=== PATIENT | female | born 1990 | race African-American/Black ===

== ENCOUNTER 2018-03-26 22:40 | Emergency (ER) | payer OTHER, MEDICAID, SELFPAY ==
[2018-03-26 22:48] VITALS: BP 109/82; PULSE 82; RESP 18; TEMP 37; O2SAT 99; BMI 19.5
[2018-03-26] MEDS: CYCLOBENZAPRINE 10 MG PREPACK 1 BOTTLE MISC (23:17)
--- NOTE | 2018-03-26 23:21 | PC.NURSE ---
pt reports stumbled on stairs, caught herself with railing before falling, still having rt side neck pain 1 week later, denies LOC/nausea/vomiting/numbness/tingling, no midline tenderness
--- NOTE | 2018-03-27 05:44 | ED.NECK ---
HPI - Neck Pain/Injury General Chief Complaint: Neck Pain/Injury Stated Complaint: NECK PAIN Time Seen by Provider: 03/26/18 22:46 Source: patient and family Mode of arrival: ambulatory Limitations: no limitations History of Present Illness HPI Narrative: Patient presents to the emergency department with in the chief complaint of right-sided neck pain for the past week. One week ago she was walking down some stairs and slipped and reached out and grabbed the railing and felt immediate kink in her nap from what sounds like a whiplash injury. She denies any direct trauma to her neck and did not fall. She denies numbness, weakness or tingling. She has pain in the right side of her neck particularly with motion. It feels better to remain still. She denies fever chills or headache. MD complaint: neck pain and neck injury Onset (ago): week(s) Place: home Radiation: right lateral Severity: moderate Quality: burning and sharp Duration: constant Relieving factors: remaining still Exacerbating factors: movement of neck Context: near fall Associated symptoms: none Treatments prior to arrival: ibuprofen Related Data Previous Rx's Medication Instructions Recorded medroxyprogesterone 10 mg PO QDAY #14 tab 11/21/16 cyclobenzaprine 10 mg PO TID PRN #14 tab 03/26/18 Allergies Allergy/AdvReac Type Severity Reaction Status Date / Time No Known Allergies Allergy Uncoded 12/27/17 12:41 Review of Systems Review of Systems All systems reviewed & are unremarkable except as noted in HPI and below Constitutional Denies chills, Denies fever(s), Denies lethargy and Denies weakness Eyes Denies change in vision, Denies eye discharge, Denies irritation and Denies loss of vision ENT Ears, Nose, Mouth, and Throat: Denies change in voice, Reports neck pain and Denies sore throat Cardiovascular Denies chest pain, Denies irregular heart rhythm, Denies lightheadedness, Denies palpitations, Denies dyspnea, Denies dyspnea on exertion and Denies orthopnea Respiratory Denies cough, Denies dyspnea, Denies dyspnea on exertion and Denies wheezing Gastrointestinal Gastrointestinal: Denies abdominal pain, Denies change in bowel habits, Denies diarrhea, Denies nausea and Denies vomiting Genitourinary Denies hematuria, Denies flank pain, Denies urinary incontinence and Denies urinary urgency Musculoskeletal Reports neck pain and Reports stiffness Integumentary/Breasts Denies pruritus, Denies erythema, Denies rash and Denies wounds Neurologic Denies confusion, Denies loss of vision and Denies weakness Psychiatric Denies anxiety, Denies confusion, Denies depression, Denies homicidal ideation and Denies suicidal ideation Endocrine Denies palpitations Hematologic/Lymphatic Denies easy bruising Allergic/Immunologic Denies wheezing Exam Initial Vital Signs Initial Vital Signs: Vital Signs Temperature 98.6 F 03/26/18 22:48 Pulse Rate 82 03/26/18 22:48 Respiratory Rate 18 03/26/18 22:48 Blood Pressure 109/82 H 03/26/18 22:48 Pulse Oximetry 99 03/26/18 22:48 Const General: cooperative, well developed and in distress Nutritional Appearance: well nourished Orientation: alert, awake, oriented x3 and not confused HENWA Head: normal to inspection Ears: hearing grossly normal bilaterally Nose: external nose normal Face and sinus: normal facial exam Mouth: oral mucosae normal Teeth and gingiva: dentition normal Eyes General: appearance normal, both eyes and all related structures Eyelids: eyelids normal Conjunctivae: conjunctivae normal Sclera: sclerae normal Pupils: PERRL EOM: EOM intact bilaterally Neck Neck: normal visual inspection, no meningeal signs, supple, No anterior neck swelling, No lymphadenopathy, No midline deformity and tender (To palpation of right-sided paraspinal muscles) Resp Effort & Inspection: normal respiratory effort, able to speak in complete sentences, no respiratory distress and no use of accessory muscles Auscultation: clear to auscultation bilaterally, no rales, no rhonchi and no wheezes Cardio Rate: regular rate Rhythm: regular rhythm Heart Sounds: no click, no gallops, no murmurs and no rubs Pulses: normal peripheral pulses GI Inspection: non-distended Palpation: soft, no hepatosplenomegaly, No guarding, No pulsatile mass and No tender Auscultation: normal bowel sounds Back/Spine/Pelvis Back: No CVA tenderness Cervical Spine: cervical ROM normal and No pain with cervical ROM Thoracic/Lumbar Spine: thoracic and lumbar spine normal to inspection Skin General: no rashes or lesions noted, No jaundice and No petechiae Neuro General: alert, awake and oriented x3 Cranial Nerves: CN's II-XI intact bilaterally Cognition: normal cognition Speech: speech normal Gait: normal gait Motor: muscle tone normal throughout Sensory Exam: no sensory deficits noted Extrem Left upper extremity: full ROM Right lower extremity: full ROM Course Orders Ordered: Discontinued Medications Cyclobenzaprine HCl (Flexeril 10 Mg Prepack) 1 bottle MISC SEEINSTR ONE Stop: 03/26/18 23:01 Last Admin: 03/26/18 23:17 Dose: 1 bottle Vital Signs - 8 hr 03/26/18 22:48 Temperature 98.6 F Pulse Rate 82 Respiratory Rate 18 Blood Pressure 109/82 H Pulse Oximetry 99 MDM - Neck Pain/Injury MDM Narrative Medical decision making narrative: Patient had a near fall without any direct impact or true trauma. She has pain in the muscles but no bony point tenderness and no neurologic symptoms such as numbness, tingling or radiation of pain. She had no change in symptoms with axial load of her cervical spine. Discharge Plan Departure Patient Disposition: Home, Self-Care Clinical Impression: Cervical paraspinal muscle spasm Discharge Date/Time: 03/26/18 23:22 Interventions: ED Discharge Assessment Last Done: 03/26/18 23:22 Instructions: DI for Neck Pain Activity Restrictions/Additional Instructions: *You have been diagnosed with [ Acute paraspinal neck spas ] *What to do: *Take medications as directed *Follow up with your primary care provider in 2-3 days *Return to ER if you should have any new, worsening or concerning symptoms Prescriptions: New cyclobenzaprine 10 mg tablet 10 mg PO TID PRN (Reason: muscle spasm) Qty: 14 RF: 0 No Action medroxyprogesterone 10 MG tablet 10 mg PO QDAY Qty: 14 RF: 1
== END 2018-03-26 23:22 | disposition home or self-care (01) ==
PROVIDERS: Emergency Provider Emergency Medicine
DX: M62.838 Other muscle spasm (principal)
CPT/HCPCS: 99282; 99283